=== PATIENT | male | born 1975 | race Caucasian/White ===

== ENCOUNTER 2023-03-14 13:36 | Emergency (ER) | payer OTHER, BC ==
[~2023-03-14] VITALS: Ht 182.9 cm; Wt 113.4 kg
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
[2023-03-14] MEDS ORDERED: IBUPROFEN 600 MG TABLET ONE (15:12)
[2023-03-14] MEDS ORDERED: HYDROCODONE/APAP 5/325MG TABLET ONE (15:12)
--- NOTE | 2023-03-14 15:15 | NUR ---
PT TAKEN TO CT VIA [facility]
[2023-03-14] MEDS ORDERED: IBUPROFEN 600 MG TABLET PO ONE (15:30)
[2023-03-14] MEDS ORDERED: HYDROCODONE/APAP 5/325MG TABLET PO ONE (15:30)
[2023-03-14] MEDS ORDERED: HYDR-3972 PO (16:47)
[2023-03-14] MEDS ORDERED: IBUP-1953 PO (16:47)
[2023-03-14] MEDS ORDERED: HYDR-4279 PO (16:56)
--- NOTE | 2023-03-14 16:59 | NUR ---
Patient discharged to home in stable condition. Written and verbal after care instructions given. Patient verbalizes understanding of instruction.
[2023-03-14 17:00] VITALS: BP 126/89
== END 2023-03-14 17:12 | disposition home or self-care (01) ==
LOC: ER 14:41
DX: S50.12XA Contusion of left forearm, initial encounter (principal); S20.219A Contusion of unspecified front wall of thorax, initial encounter; S80.812A Abrasion, left lower leg, initial encounter; S09.90XA Unspecified injury of head, initial encounter; Z60.2 Problems related to living alone; V49.9XXA Car occupant (driver) (passenger) injured in unspecified traffic accident, initial encounter; Y93.89 Activity, other specified; Y92.89 Other specified places as the place of occurrence of the external cause; Y99.8 Other external cause status
CPT/HCPCS: 70450-TC; 71045-TC; 72125-TC; 73090-TC; 73590-TC